=== PATIENT | male | born 1990 | race African-American/Black ===

== ENCOUNTER 2017-01-18 23:25 | Emergency (ER) | payer OTHER ==
[~2017-01-18] VITALS: Ht 190.5 cm; Wt 113.4 kg
[2017-01-18 23:29] VITALS: BP 124/71
--- NOTE | 2017-01-18 23:40 | NUR ---
Dr Feliciano at bedside to eval.
== END 2017-01-18 23:54 | disposition home or self-care (01) ==
LOC: ER 23:26
DX: M26.621 Arthralgia of right temporomandibular joint (principal)
CPT/HCPCS: 99282; A4606; Z7610